=== PATIENT | male | born 1960 | race Caucasian/White ===

== ENCOUNTER 2017-10-15 18:31 | Emergency (ER) | payer OTHER ==
[2017-10-15] MEDS: IBUPROFEN 200 MG TAB PO (22:20)
[2017-10-15] MEDS: GUAIFENESIN/CODEINE 5ML CUP PO (22:20)
[2017-10-15] MEDS: ACETAMINOPHEN 325 MG TAB PO (22:20)
== END 2017-10-16 00:28 | disposition home or self-care (01) ==
LOC: FTE 10-16 00:28
DX: J20.9 Acute bronchitis, unspecified (principal); E11.9 Type 2 diabetes mellitus without complications; Z76.0 Encounter for issue of repeat prescription; Z79.84 Long term (current) use of oral hypoglycemic drugs
CPT/HCPCS: 71010; 82962; 99284-25

== ENCOUNTER 2017-12-08 09:05 | Emergency (ER) | payer OTHER | END 2017-12-08 10:30 | disposition home or self-care (01) | LOC: E/R 10:30 | DX: Z76.0 Encounter for issue of repeat prescription (principal); Z79.4 Long term (current) use of insulin | CPT/HCPCS: 99281 ==

== ENCOUNTER 2018-11-21 18:17 | Emergency (ER) | payer OTHER ==
[2018-11-21 18:49] LABS: ADD MAN DIFF? NO
[2018-11-21] MEDS: SOD CHLORIDE 0.9% 630 ML IV (18:51)
[2018-11-21 18:54] LABS: WHITE BLOOD COUNT 5.3 10^3/ul (4.8-10.8)
[2018-11-21 18:54] LABS: BASOPHILS % 0.4 % (0.0-2.0); EOSINOPHILS % 0.8 % (0.0-7.0); HEMATOCRIT 36.6 % (42.0-52.0); LYMPHOCYTES # 1.5 10^3/ul (0.8-2.9); LYMPHOCYTES % 27.5 % (15.0-51.0); MEAN CORPUSCULAR HGB CONC 35.5 g/dl (32.0-37.0); MEAN CORPUSCULAR VOLUME 87.4 fl (82.0-101.0); MEAN PLATELET VOLUME 9.4 fl (7.4-10.4); MONOCYTE # 0.3 10^3/ul (0.3-0.9); MONOCYTES % 5.1 % (0.0-11.0); NEUTROPHIL # 3.5 10^3/ul (1.6-7.5); PLATELET COUNT 226 10^3/UL (140-415); RED BLOOD COUNT 4.19 10^6/ul (4.70-6.10)
[2018-11-21 18:57] LABS: ADD UMIC NO; UR ASCORBIC ACID 20 mg/dL (NEGATIVE); UR BILIRUBIN (Dip) NEGATIVE (NEGATIVE); UR BLOOD (Dip) NEGATIVE (NEGATIVE); UR CLARITY CLEAR (CLEAR); UR COLOR COLORLESS (YELLOW); UR GLUCOSE (Dip) 3+ mg/dL (NEGATIVE); UR KETONES (Dip) NEGATIVE (NEGATIVE); UR LEUKOCYTE ESTERASE (Dip) NEGATIVE Leu/ul (NEGATIVE); UR NITRITE (Dip) NEGATIVE (NEGATIVE); UR SPECIFIC GRAVITY (Dip) 1.017 (1.003-1.030); UR TOTAL PROTEIN (Dip) NEGATIVE (NEGATIVE); UR UROBILINOGEN (Dip) NEGATIVE (NEGATIVE)
[2018-11-21 19:09] LABS: MODE ROOM AIR; MetHgb Venous 0.3 %; Sample Type Blood venous; Site VENOUS LINE; Venous COHb 0.3 %; Venous Oxygen Sat 80.5 mmHG (55.0-75.0); Venous Total Hemglobin 12.2 g/dl
[2018-11-21 19:13] LABS: ANION GAP 9 (5-13); BLOOD UREA NITROGEN 9 mg/dl (7-20); CALCIUM 8.7 mg/dl (8.4-10.2); CARBON DIOXIDE 27 mmol/L (21-31); CHLORIDE 95 mmol/L (97-110); CREATININE 0.84 mg/dl (0.61-1.24); Estimated GFR > 60 mL/min (>60); PHOSPHORUS 4.3 mg/dl (2.5-4.9); POTASSIUM 4.4 mmol/L (3.5-5.1); SODIUM 131 mmol/L (135-144)
[2018-11-21 19:22] LABS: GLUCOSE 624 mg/dl (70-220)
[2018-11-21 19:24] LABS: TROPONIN-I < 0.012 ng/ml (0.000-0.120)
[2018-11-21] MEDS: SOD CHLORIDE 0.9% 1,000 ML IV (19:44)
[2018-11-21] MEDS: INSULIN LISPRO 100 UNIT/ML VIAL SC (19:50)
== END 2018-11-21 21:07 | disposition home or self-care (01) ==
LOC: E/R 18:17
DX: E11.65 Type 2 diabetes mellitus with hyperglycemia (principal); Z79.4 Long term (current) use of insulin
CPT/HCPCS: 36415; 71045; 80048; 81003; 82803; 82962; 83735; 84100; 84484; 85025; 93005; 96372; 99285-25

== ENCOUNTER 2019-03-19 02:08 | Inpatient (IN) | payer OTHER ==
[2019-03-19 03:12] LABS: ADD MAN DIFF? NO
[2019-03-19 03:14] LABS: BASOPHILS % 0.2 % (0.0-2.0); EOSINOPHILS % 0.3 % (0.0-7.0); HEMATOCRIT 38.5 % (42.0-52.0); HEMOGLOBIN 13.8 g/dl (14.0-18.0); LYMPHOCYTES # 1.7 10^3/ul (0.8-2.9); LYMPHOCYTES % 18.9 % (15.0-51.0); MEAN CORPUSCULAR HEMOGLOBIN 30.8 pg (29.0-33.0); MEAN CORPUSCULAR HGB CONC 35.8 g/dl (32.0-37.0); MEAN CORPUSCULAR VOLUME 85.9 fl (82.0-101.0); MEAN PLATELET VOLUME 8.9 fl (7.4-10.4); MONOCYTES % 10.4 % (0.0-11.0); NEUTROPHIL # 6.4 10^3/ul (1.6-7.5); NEUTROPHILS % 69.8 % (39.0-77.0); PLATELET COUNT 204 10^3/UL (140-415); RED BLOOD COUNT 4.48 10^6/ul (4.70-6.10); RED CELL DISTRIBUTION WIDTH 12.4 % (11.5-14.5)
[2019-03-19 03:14] LABS: WHITE BLOOD COUNT 9.2 10^3/ul (4.8-10.8)
[2019-03-19] MEDS: ASPIRIN 81 MG TAB PO (03:15)
[2019-03-19] MEDS: SOD CHLORIDE 0.9% 1,000 ML IV ×2 (03:20→06:04)
[2019-03-19] MEDS: HEPARIN 1000 UNITS/ML 10 ML INJ IV (03:23)
[2019-03-19] MEDS: NITROGLYCERIN 50 MG/D5W (PMX) 250 ML IV ×3 (03:25→23:17)
[2019-03-19] MEDS: FENTAnyl 50 MCG/ML VIAL IV (03:26)
[2019-03-19 03:29] LABS: ANION GAP 9 (5-13); BLOOD UREA NITROGEN 12 mg/dl (7-20); CARBON DIOXIDE 30 mmol/L (21-31); CHLORIDE 101 mmol/L (97-110); CREATININE 0.71 mg/dl (0.61-1.24); Estimated GFR > 60 mL/min (>60); GLUCOSE 268 mg/dl (70-220); SODIUM 140 mmol/L (135-144)
[2019-03-19] MEDS ORDERED: HEPARIN 1000 UNITS/ML 10 ML INJ (03:50)
[2019-03-19] MEDS ORDERED: LIDOCAINE 1% (MDV) 20 ML INJ (03:50)
[2019-03-19] MEDS ORDERED: IODIXANOL LOCM 100 ML BTL (03:50)
[2019-03-19] MEDS ORDERED: FENTAnyl 50 MCG/ML VIAL (03:51)
[2019-03-19] MEDS ORDERED: NITROGLYCERIN (IC) 100 MCG/ML INJ (03:51)
[2019-03-19] MEDS ORDERED: VERAPAMIL 5 MG INJ (03:51)
[2019-03-19] MEDS ORDERED: MIDAZOLAM 1 MG/ML 2 ML INJ (03:51)
[2019-03-19] MEDS ORDERED: BIVALIRUDIN 250MG /NS 50 ML 50 ML IVPB (04:28)
[2019-03-19] MEDS ORDERED: niCARdipine 25 MG INJ (04:42)
[2019-03-19] MEDS ORDERED: TICAGRELOR 90 MG TABLET (05:01)
[2019-03-19] MEDS: BIVALIRUDIN 250MG /NS 50 ML 50 ML IVPB (05:06)
[2019-03-19] MEDS ORDERED: ONDANSETRON 4 MG INJ IV (05:30)
[2019-03-19] MEDS ORDERED: OXYCODONE/ACETAMINOPHEN (5/325) TAB PO (05:30)
[2019-03-19] MEDS ORDERED: AL HYDROX/MG HYDROX/SIMETH 30 ML CUP PO (05:30)
[2019-03-19] MEDS ORDERED: ACETAMINOPHEN 650MG/20.3ML CUP PO (06:00)
[2019-03-19] MEDS: PANTOPRAZOLE (EC) 40 MG TAB PO (06:00)
[2019-03-19] MEDS ORDERED: NITROGLYCERIN (SL) 0.4 MG TAB SL (06:00)
[2019-03-19] MEDS: morphine 2 MG INJ IV ×5 (06:01→23:39)
[2019-03-19] MEDS: EPTIFIBATIDE 100 ML IV (06:04)
[2019-03-19] MEDS ORDERED: NITROGLYCERIN 50 MG/D5W 250 ML BTL (07:00)
[2019-03-19] MEDS ORDERED: ASPIRIN 81 MG TAB (07:00)
[2019-03-19] MEDS ORDERED: HEPARIN 5,000 UNIT/1 ML VIAL (07:00)
[2019-03-19] MEDS: NITROGLYCERIN (SL) 0.4 MG TAB SL ×4 (07:18→20:48)
[2019-03-19] MEDS: ASPIRIN (EC) 81 MG TAB PO (09:00)
[2019-03-19 09:49] LABS: CREATINE KINASE 794 IU/L (23-200)
[2019-03-19 10:02] LABS: CK INDEX 5.2
[2019-03-19] MEDS: TICAGRELOR 90 MG TABLET PO ×2 (10:06→20:38)
[2019-03-19] MEDS: ONDANSETRON 4 MG INJ IV ×2 (10:15→18:05)
[2019-03-19] MEDS: BENAZEPRIL 20 MG TAB PO (10:57)
[2019-03-19] MEDS ORDERED: LORAZEPAM 2 MG INJ IV (11:30)
[2019-03-19] MEDS ORDERED: GLUCAGON 1 MG INJ IM (12:00)
[2019-03-19] MEDS ORDERED: DEXTROSE 50% 50 ML SYRINGE IV ×2 (12:00)
[2019-03-19] MEDS ORDERED: GLUCOSE GEL 15 GRAM TUBE BUCCAL (12:00)
[2019-03-19] MEDS ORDERED: GLUCOSE GEL 15 GRAM TUBE PO ×2 (12:00)
[2019-03-19] MEDS: ACETAMINOPHEN 325 MG TAB PO (12:02)
[2019-03-19] MEDS: INSULIN ASPART [NOVOLOG] 3 ML PEN SC ×5 (13:11→20:39)
[2019-03-19 15:16] LABS: CREATINE KINASE 665 IU/L (23-200)
[2019-03-19 15:25] LABS: CK INDEX 4.7
[2019-03-19] MEDS: ATORVASTATIN 80 MG TAB PO (20:37)
[2019-03-19] MEDS: FAMOTIDINE 20 MG TAB PO (20:37)
[2019-03-19] MEDS: INSULIN GLARGINE [LANTus] (100 UNITS/ML) SYG SC (20:39)
[2019-03-20] MEDS: ACCU-CHEK XX (02:00)
[2019-03-20] MEDS: morphine 2 MG INJ IV ×2 (04:01→20:58)
[2019-03-20] MEDS: ACETAMINOPHEN 325 MG TAB PO (04:08)
[2019-03-20 05:31] LABS: WHITE BLOOD COUNT 7.9 10^3/ul (4.8-10.8)
[2019-03-20 05:31] LABS: BASOPHILS % 0.1 % (0.0-2.0); EOSINOPHILS % 0.1 % (0.0-7.0); HEMATOCRIT 31.7 % (42.0-52.0); HEMOGLOBIN 11.1 g/dl (14.0-18.0); LYMPHOCYTES % 12.5 % (15.0-51.0); MEAN CORPUSCULAR VOLUME 88.5 fl (82.0-101.0); MONOCYTE # 0.8 10^3/ul (0.3-0.9); MONOCYTES % 10.1 % (0.0-11.0); NEUTROPHIL # 6.1 10^3/ul (1.6-7.5); NEUTROPHILS % 76.9 % (39.0-77.0); PLATELET COUNT 163 10^3/UL (140-415); RED BLOOD COUNT 3.58 10^6/ul (4.70-6.10); RED CELL DISTRIBUTION WIDTH 12.2 % (11.5-14.5)
[2019-03-20] MEDS: PANTOPRAZOLE (EC) 40 MG TAB PO (05:31)
[2019-03-20 05:32] LABS: ADD MAN DIFF? NO
[2019-03-20 06:05] LABS: ALANINE AMINOTRANSFERASE 46 IU/L (13-69); ALBUMIN 3.2 g/dl (3.3-4.9); ALKALINE PHOSPHATASE 60 IU/L (42-121); ASPARTATE AMINO TRANSFERASE 70 IU/L (15-46); CHOL/HDL RATIO 3.7 RATIO; CHOLESTEROL 123 mg/dl (100-200); HDL CHOLESTEROL 33 mg/dl (28-71); LDL CHOLESTEROL,CALCULATED 62 mg/dl; TOTAL PROTEIN 5.6 g/dl (6.1-8.1); TRIGLYCERIDES 141 mg/dl (0-149)
[2019-03-20 06:06] LABS: ANION GAP 7 (5-13); BLOOD UREA NITROGEN 12 mg/dl (7-20); CALCIUM 8.1 mg/dl (8.4-10.2); CARBON DIOXIDE 27 mmol/L (21-31); CHLORIDE 104 mmol/L (97-110); CREATINE KINASE 430 IU/L (23-200); CREATININE 0.67 mg/dl (0.61-1.24); Estimated GFR > 60 mL/min (>60); GLUCOSE 129 mg/dl (70-220); POTASSIUM 3.7 mmol/L (3.5-5.1); SODIUM 138 mmol/L (135-144)
[2019-03-20 06:21] LABS: CK INDEX 2.5
[2019-03-20 06:48] LABS: HEMOGLOBIN A1C 7.9 % (0-5.9)
[2019-03-20] MEDS: BENAZEPRIL 20 MG TAB PO (08:19)
[2019-03-20] MEDS: ASPIRIN (EC) 81 MG TAB PO (08:19)
[2019-03-20] MEDS: INSULIN ASPART [NOVOLOG] 3 ML PEN SC ×7 (08:20→20:21)
[2019-03-20] MEDS: FAMOTIDINE 20 MG TAB PO (08:20)
[2019-03-20] MEDS: TICAGRELOR 90 MG TABLET PO ×2 (08:21→20:20)
[2019-03-20] MEDS: ATORVASTATIN 80 MG TAB PO (20:19)
[2019-03-20] MEDS: INSULIN GLARGINE [LANTus] (100 UNITS/ML) SYG SC (20:20)
[2019-03-20] MEDS: NITROGLYCERIN (SL) 0.4 MG TAB SL (20:58)
[2019-03-21] MEDS: ACCU-CHEK XX (01:27)
[2019-03-21] MEDS: PANTOPRAZOLE (EC) 40 MG TAB PO (05:05)
[2019-03-21 05:10] LABS: ADD MAN DIFF? NO
[2019-03-21 05:16] LABS: BASOPHILS % 0.1 % (0.0-2.0); EOSINOPHILS # 0.1 10^3/ul (0.0-0.5); EOSINOPHILS % 0.6 % (0.0-7.0); HEMATOCRIT 34.8 % (42.0-52.0); HEMOGLOBIN 12.1 g/dl (14.0-18.0); LYMPHOCYTES # 1.4 10^3/ul (0.8-2.9); LYMPHOCYTES % 17.3 % (15.0-51.0); MEAN CORPUSCULAR HEMOGLOBIN 30.4 pg (29.0-33.0); MEAN CORPUSCULAR HGB CONC 34.8 g/dl (32.0-37.0); MEAN CORPUSCULAR VOLUME 87.4 fl (82.0-101.0); MEAN PLATELET VOLUME 9.2 fl (7.4-10.4); MONOCYTE # 0.7 10^3/ul (0.3-0.9); NEUTROPHILS % 73.6 % (39.0-77.0); PLATELET COUNT 202 10^3/UL (140-415); RED BLOOD COUNT 3.98 10^6/ul (4.70-6.10); RED CELL DISTRIBUTION WIDTH 11.9 % (11.5-14.5)
[2019-03-21 05:16] LABS: WHITE BLOOD COUNT 8.1 10^3/ul (4.8-10.8)
[2019-03-21 05:50] LABS: ANION GAP 6 (5-13); BLOOD UREA NITROGEN 15 mg/dl (7-20); CALCIUM 8.5 mg/dl (8.4-10.2); CARBON DIOXIDE 27 mmol/L (21-31); CHLORIDE 105 mmol/L (97-110); CREATININE 0.78 mg/dl (0.61-1.24); Estimated GFR > 60 mL/min (>60); GLUCOSE 104 mg/dl (70-220); MAGNESIUM 2.2 mg/dl (1.7-2.5); POTASSIUM 3.6 mmol/L (3.5-5.1); SODIUM 138 mmol/L (135-144)
[2019-03-21] MEDS: INSULIN ASPART [NOVOLOG] 3 ML PEN SC ×7 (08:00→20:28)
[2019-03-21] MEDS: ASPIRIN (EC) 81 MG TAB PO (08:16)
[2019-03-21] MEDS: BENAZEPRIL 20 MG TAB PO (08:17)
[2019-03-21] MEDS: TICAGRELOR 90 MG TABLET PO ×2 (08:21→20:29)
[2019-03-21] MEDS: POTASSIUM CHLORIDE (SR) 20 MEQ TAB PO (11:36)
[2019-03-21] MEDS: ATORVASTATIN 80 MG TAB PO (20:29)
[2019-03-21] MEDS: INSULIN GLARGINE [LANTus] (100 UNITS/ML) SYG SC (20:29)
[2019-03-21] MEDS: morphine 2 MG INJ IV (23:11)
[2019-03-22] MEDS: ACCU-CHEK XX (02:00)
[2019-03-22] MEDS: PANTOPRAZOLE (EC) 40 MG TAB PO (05:55)
[2019-03-22 06:07] LABS: ADD MAN DIFF? NO
[2019-03-22 06:13] LABS: WHITE BLOOD COUNT 5.2 10^3/ul (4.8-10.8)
[2019-03-22 06:13] LABS: BASOPHILS % 0.2 % (0.0-2.0); EOSINOPHILS # 0.1 10^3/ul (0.0-0.5); EOSINOPHILS % 1.5 % (0.0-7.0); HEMATOCRIT 34.8 % (42.0-52.0); HEMOGLOBIN 12.2 g/dl (14.0-18.0); LYMPHOCYTES # 1.1 10^3/ul (0.8-2.9); LYMPHOCYTES % 21.3 % (15.0-51.0); MEAN CORPUSCULAR HEMOGLOBIN 30.7 pg (29.0-33.0); MEAN CORPUSCULAR HGB CONC 35.1 g/dl (32.0-37.0); MEAN CORPUSCULAR VOLUME 87.4 fl (82.0-101.0); MEAN PLATELET VOLUME 9.2 fl (7.4-10.4); MONOCYTE # 0.4 10^3/ul (0.3-0.9); MONOCYTES % 8.5 % (0.0-11.0); NEUTROPHIL # 3.6 10^3/ul (1.6-7.5); NEUTROPHILS % 68.3 % (39.0-77.0); PLATELET COUNT 238 10^3/UL (140-415); RED BLOOD COUNT 3.98 10^6/ul (4.70-6.10); RED CELL DISTRIBUTION WIDTH 11.8 % (11.5-14.5)
[2019-03-22 06:41] LABS: ANION GAP 8 (5-13); BLOOD UREA NITROGEN 14 mg/dl (7-20); CALCIUM 8.8 mg/dl (8.4-10.2); CARBON DIOXIDE 27 mmol/L (21-31); CHLORIDE 106 mmol/L (97-110); CREATININE 0.69 mg/dl (0.61-1.24); Estimated GFR > 60 mL/min (>60); GLUCOSE 95 mg/dl (70-220); POTASSIUM 4.1 mmol/L (3.5-5.1); SODIUM 141 mmol/L (135-144)
[2019-03-22] MEDS: INSULIN ASPART [NOVOLOG] 3 ML PEN SC ×2 (07:32→08:05)
[2019-03-22] MEDS: ASPIRIN (EC) 81 MG TAB PO (08:06)
[2019-03-22] MEDS: BENAZEPRIL 20 MG TAB PO (08:07)
[2019-03-22] MEDS: TICAGRELOR 90 MG TABLET PO (08:10)
== END 2019-03-22 11:50 | disposition home or self-care (01) | DRG 247 ==
LOC: ICU 03-20 06:16 → 6WM 03-21 04:24 → E/R 02:08 → CCL 03:51 → SDS 03:51 → ICU 03:52
PROC: 027035Z Dilation of Coronary Artery, One Artery with Two Drug-eluting Intraluminal Devices, Percutaneous Approach (ICD-10-PCS; principal; 2019-03-19 03:30)
PROC: 4A023N7 Measurement of Cardiac Sampling and Pressure, Left Heart, Percutaneous Approach (ICD-10-PCS; 2019-03-19 03:30)
PROC: B211YZZ Fluoroscopy of Multiple Coronary Arteries using Other Contrast (ICD-10-PCS; 2019-03-19 03:30)
DX: I21.02 ST elevation (STEMI) myocardial infarction involving left anterior descending coronary artery (principal); E78.5 Hyperlipidemia, unspecified; I10 Essential (primary) hypertension; I25.10 Atherosclerotic heart disease of native coronary artery without angina pectoris; E11.9 Type 2 diabetes mellitus without complications; F41.9 Anxiety disorder, unspecified; I51.89 Other ill-defined heart diseases; I51.7 Cardiomegaly; Z79.4 Long term (current) use of insulin
CPT/HCPCS: 36415; 71045; 80048; 80061; 80076; 82550; 82553; 82962; 83036; 83735; 84100; 84484; 85025; 87081; 93005; 93306; 93458; 96365; 96375; 99285-25